=== PATIENT | male | born 1970 | race African-American/Black ===

== ENCOUNTER 2019-03-07 14:11 | Emergency (ER) | payer OTHER, SELFPAY ==
[~2019-03-07] VITALS: Ht 170.2 cm; Wt 66.0 kg
[2019-03-07] MEDS ORDERED: SODIUM CHLORIDE 0.9% 1,000 ML IV ONE ×2 (17:52→23:00)
[2019-03-07] MEDS ORDERED: ONDANSETRON HCL 4MG/2ML INJ IV STA (17:52)
[2019-03-07] MEDS ORDERED: LORAZEPAM 2MG/ML CPJ IV ONE (18:00)
[2019-03-07 18:27] LABS: HEMATOCRIT. 37.3 % (42.0-52.0); HEMOGLOBIN. 12.1 g/dL (14.0-18.0); MEAN CORPUSCULAR HEMOGLOBIN 18.8 pg (28.0-32.0); MEAN CORPUSCULAR VOLUME 57.8 fL (80.0-94.0); MEAN PLATELET VOLUME 8.3 fl (7.4-10.4); PLATELET 134 x1000/uL (130-400); RED BLOOD CELL COUNT 6.46 mill/uL (4.7-6.1); RED CELL DISTRIBUTION WIDTH 18.5 % (11.6-14.6)
[2019-03-07 18:35] LABS: CHLORIDE 102 mEq/L (98-107)
[2019-03-07 18:48] LABS: ETHANOL BLOOD 424 mg/dL
[2019-03-07 18:59] LABS: NUCLEATED RED BLOOD CELLS 2 /100 WBC
[2019-03-07 19:01] LABS: PLATELET ESTIMATE NORMAL
[2019-03-07] MEDS ORDERED: LORAZEPAM 1MG TABLET PO ONE (23:00)
[2019-03-08 00:42] VITALS: BP 101/65
== END 2019-03-08 00:43 | disposition home or self-care (01) ==
LOC: ER 14:11
DX: T51.0X1A Toxic effect of ethanol, accidental (unintentional), initial encounter (principal); R53.1 Weakness; Y92.89 Other specified places as the place of occurrence of the external cause
CPT/HCPCS: 36415; 80053; 80320; 83880; 84484; 85025; 93005; 96374; 96375; 99284; J2060; J2405; J7030; G0480